=== PATIENT | male | born 1960 | race Caucasian/White ===

== ENCOUNTER → 2018-02-14 | Outpatient (CLI) | payer OTHER ==
[~2018-02-14] VITALS: Ht 190.5 cm; Wt 128.2 kg
[~2018-02-14] MED LIST: LISINOPRIL10 MG PO; TRAMADOL 50 MG50 MG PO
--- NOTE | ~2018-02-14 | HPC ---
[facility] [place] [address] PAIN MANAGEMENT CONSULTATION Name: KARINE MORLEY Room #: REG MAGDIEL Lucien.#: [id number] Admission: 02/14/18 Attend Phys: Tomi Pruett MD Discharge: Date of : 64 Report #: [id number] THIS REPORT FOR: //name// CC: Felix Pruett DATE OF SERVICE: 02/14/2018 REASON FOR VISIT: Followup visit for multilevel stenosis with radiculopathy, right worse than left. HISTORY OF PRESENT ILLNESS: The patient returns to pain clinic today for an epidural injection. I provided an injection to him in September, which provided 6 weeks of excellent pain relief. The pain then gradually returned. He is still better than he was during his initial visit, but he has pain once again in his low back radiating down into both legs, right worse than left. He describes it as a constant, burning, cramping and aching sensation. It is worse with standing and walking, relieved by sitting, squatting or stretching. He is not taking pain medication at this time and is not offered it until we assume the results of the epidural injection. I reviewed his x-rays with him once again including both the x-rays from his injection and also his MRI. I have talked about the importance of exercise and I have referred him to [facility] for physical therapy. Plan for him to be seen once a week for 6 weeks. PHYSICAL EXAMINATION: GENERAL: He is a pleasant fellow. VITAL SIGNS: Blood pressure 145/99, heart rate is 76. MUSCULOSKELETAL: Moves from sitting to standing position and walks with a normal gait. He has positive straight leg raising discomfort and tightness in his hamstrings. He has back pain, pain across his lumbosacral segment, pain with forward flexion and extension. IMPRESSION: 1. Chronic low back pain with multilevel spinal stenosis, L2-L3 through L5-S1 with neural foraminal narrowing at many levels. 2. Large cystic mass, which was removed and was identified as a renal cell cancer. It was encapsulated and felt to be cured. 3. Hypertension. 4. Obesity with body mass index greater than 34. PROCEDURE: Repeat epidural injection at L3-L4 under fluoroscopic guidance. [address] [address] PAIN MANAGEMENT CONSULTATION Name: KARINE MORLEY TAN Room #: REG Sophia Musa#: [id number] Admission: 02/14/18 Attend Phys: Tomi Pruett MD Discharge: Date of : 64 Report #: [id number] DESCRIPTION OF PROCEDURE: He was taken to the fluoroscopic suite, placed prone, skin prepped with ChloraPrep. Skin anesthetized over L3-L4. Using fluoroscopic guidance, I advanced a 20-gauge needle into the epidural space with loss of resistance technique. There is no blood and no CSF aspirated. A 1 mL of Omnipaque injected. Good spread of dye observed followed by 3 mL of 0.5% lidocaine mixed with 80 mg of triamcinolone. He tolerated the procedure well and was observed for 45 minutes and discharged. By: [id number] [id number] Tomi Pruett MD /nt
[2018-02-14 13:58] VITALS: BP 145/99
== END | disposition home or self-care (01) ==
LOC: PAIN 07:30
DX: M54.16 Radiculopathy, lumbar region (principal); G89.29 Other chronic pain; M48.061 Spinal stenosis, lumbar region without neurogenic claudication; I10 Essential (primary) hypertension; E66.01 Morbid (severe) obesity due to excess calories; Z68.34 Body mass index [BMI] 34.0-34.9, adult; Z85.53 Personal history of malignant neoplasm of renal pelvis; Z98.890 Other specified postprocedural states; Z79.899 Other long term (current) drug therapy; Z87.891 Personal history of nicotine dependence